=== PATIENT | male | born 2000 | race African-American/Black ===

== ENCOUNTER 2019-03-26 02:27 | Emergency (ER) | payer SELFPAY, OTHER | END 2019-03-26 03:40 | disposition home or self-care (01) | LOC: ER 02:27 ==

== ENCOUNTER 2019-11-09 07:01 | Emergency (ER) | payer BC, OTHER ==
[~2019-11-09] VITALS: Ht 177 cm; Wt 79.0 kg
--- NOTE | 2019-11-09 07:31 | ED Lower Extremity ---
General Chief Complaint: Lower Extremity Stated Complaint: LEFT ANKLE PAIN Nursing Triage Note: ARRIVED VIA WC TO ROOM 06 WITH COMPLAINTS OF LEFT ANKLE PAIN AFTER PLAYING BASKET BALL YESTERDAY. Nursing Sepsis Screen: No Definite Risk Source: patient Exam Limitations: no limitations History of Present Illness Date Seen by Provider: Nov 09, 2019 Time Seen by Provider: 07:06 Initial Comments This 19-year-old young man presents to the emergency room with injury to the left ankle. He rolled his ankle while playing basketball on his home last nig ht. He has swelling throughout the ankle and tenderness over both malleoli. He has not been able to bear weight due to pain. He has been icing the ankle but has not taken any medications. He has no other injuries. Allergies and Home Medications Allergies Coded Allergies: No Known Drug Allergies (Unverified , 03/26/19) Home Medications No Active Prescriptions or Reported Meds Patient Home Medication List Home Medication List Reviewed: Yes Review of Systems Constitutional: no symptoms reported EENTM: no symptoms reported Musculoskeletal: see HPI Skin: no symptoms reported Psychiatric/Neurological: No Symptoms Reported Past Xcadvlq-Effvgo-Uoijku Hx Past Med/Social Hx: Reviewed and Corrections made Patient Social History Alcohol Use: Rarely Uses Recreational Drug Use: Yes Drug of Choice: POT Smoking Status: Former Smoker Type Used: Cigars 2nd Hand Smoke Exposure: Yes Recent Foreign Travel: No Contact w/Someone Who Travel: No Recent Infectious Disease Expo: No Recent Hopitalizations: No Past Medical History Surgeries: Yes (TUBES IN EARS) Ear Surgery Respiratory: Yes Asthma Cardiac: No Neurological: No Genitourinary: No Gastrointestinal: No Musculoskeletal: No Endocrine: No HEENT: No Cancer: No Did You Recieve Any Treatments: No Psychosocial: No Family Medical History Reviewed Nursing Family Hx No Pertinent Family Hx Physical Exam Vital Signs Vital Signs - First Documented 11/09/19 07:05 Temp 37.0 Pulse 81 Resp 16 B/P (MAP) 130/82 (98) Pulse Ox 98 O2 Delivery Room Air Capillary Refill : Less Than 3 Seconds Height, Weight, BMI Height: 5'10.00" Weight: 170lbs. oz. [id number]; 55.00 BMI Method:Stated General Appearance: WD/WN, no apparent distress HEENT: normal ENT inspection Respiratory: no respiratory distress Legs: left leg non-tender, left leg normal inspection, left leg normal range of motion, left leg no evidence of injury Knees: left knee non-tender, left knee normal inspection, left knee normal ran ge of motion, left knee no evidence of injury Ankles: left ankle bone tenderness (bilateral malleoli), left ankle ecchymosis, left ankle limited range of motion, left ankle pain, left ankle swelling Feet: left foot non-tender, left foot normal inspection, left foot normal range of motion, left foot no evidence of injury 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 Patient was wrapped with an Adam bandage followed by a step light boot. Crutches were dispensed. Patient was encouraged to follow-up with primary care provider or an orthopedic provider for further care. Diagnostic Imaging Diagonstic Imaging: Xray Plain Films/CT/US/NM/MRI: ankle Comments Ankle x-ray viewed by me and report reviewed. There is a suspected small avulsion fracture on the lateral malleolus. See report below: NAME: CLAUDIA VILLAFANA [facility] REC#: [id number] PT STATUS: REG ER : 2000 PHYSICIAN: BUTCH FALK MD ADMIT DATE: 11/09/19/ER Draft Date of Exam:11/09/19 ANKLE, LEFT, 3 VIEWS Reason for examination: Swelling and bruising. 3 views of the left ankle demonstrate lateral soft tissue swelling. No widening of ankle mortise. Question of a small avulsion fragment from the lateral malleolus on the AP view. No osteochondral defects. IMPRESSION: 1. Left ankle lateral soft tissue swelling and a possible small avulsion fragment from the lateral malleolus on the AP view only (see arrow annotation). Dictated on workstation # [id number] Dict: 11/09/19 0759 Trans: 11/09/[address] [place] [address] [id number] Interpreted by: SANTOS GARCIA MD Departure Impression Primary Impression: Avulsion fracture of left ankle Qualified Codes: S82.892A - Other fracture of left lower leg, initial encounter for closed fracture Additional Impression: Left ankle sprain Qualified Codes: S93.402A - Sprain of unspecified ligament of left ankle, initial encounter Disposition: 01 HOME, SELF-CARE Condition: Improved Departure-Patient Inst. Decision time for Depature: 07:51 Referrals: [facility] (PCP) Primary Care Physician ULBA SEAY MD, MICHAEL P MD Patient Instructions: Ankle Sprain, Avulsion Fracture, How to Use Crutches Add. Discharge Instructions: Use crutches as needed for ambulation. Wear your boot when active. You may partially weight-bear on the boot but do not walk without the crutches until follow-up. Rest, compressive wrapping, elevation, and 20 minute intervals of icing should help with pain and swelling. For pain you may take Tylenol (acetaminophen) up to 1000 mg every 6 hours as needed. You may add ibuprofen up to 600 mg every 6 hours as needed for additional pain relief if needed. Follow-up with your primary care provider and/or an orthopedic provider within the next week. Some local orthopedic providers have been listed below for your convenience. Return to care if you have any worsening of symptoms or are not improving as anticipated. All discharge instructions reviewed with patient and/or family. Voiced understanding. Scripts No Active Prescriptions or Reported Meds BUTCH FALK MD Nov 09, 2019 07:31
--- NOTE | 2019-11-09 08:07 | Diagnostic Imaging Report ---
Reason for examination: Swelling and bruising. 3 views of the left ankle demonstrate lateral soft tissue swelling. No widening of ankle mortise. Question of a small avulsion fragment from the lateral malleolus on the AP view. No osteochondral defects. IMPRESSION: 1. Left ankle lateral soft tissue swelling and a possible small avulsion fragment from the lateral malleolus on the AP view only (see arrow annotation). Dictated by: Dictated on workstation # [id number]
--- NOTE | 2019-11-09 08:16 | NUR ---
IN TALKING TO PT AT THIS TIME.
[2019-11-09 08:23] VITALS: BP 130/82
== END 2019-11-09 08:23 | disposition home or self-care (01) ==
LOC: EDUNIT# 07:01 → ER 07:02
DX: S82.892A Other fracture of left lower leg, initial encounter for closed fracture (principal); Z87.891 Personal history of nicotine dependence; Z77.22 Contact with and (suspected) exposure to environmental tobacco smoke (acute) (chronic); X50.1XXA Overexertion from prolonged static or awkward postures, initial encounter; Y93.67 Activity, basketball; Y92.009 Unspecified place in unspecified non-institutional (private) residence as the place of occurrence of the external cause
CPT/HCPCS: 73610

== ENCOUNTER 2019-12-05 23:14 | Emergency (ER) | payer BC ==
[~2019-12-05] VITALS: Ht 175 cm; Wt 81.0 kg
[2019-12-05 23:18] VITALS: BP 145/52
[2019-12-05] MEDS ORDERED: methylPREDNISolone 125 MG (Solu-MEDROL) VIAL IV STA (23:22)
[2019-12-05] MEDS ORDERED: RT-ALBUTEROL/IPRATROPIUM 3 ML (DUONEB) VIAL INH ONE (23:30)
[2019-12-05 23:34] LABS: BASOPHILS # (AUTO) 0.1 10^3/uL (0.0-0.1); BASOPHILS % (AUTO) 1 % (0-10); EOSINOPHILS # (AUTO) 0.7 10^3/uL (0.0-0.3); EOSINOPHILS % (AUTO) 6 % (0-10); HEMATOCRIT 43 % (40-54); HEMOGLOBIN 14.7 G/DL (13.3-17.7); LYMPHOCYTES # (AUTO) 4.3 X 10^3 (1.0-4.0); LYMPHOCYTES % (AUTO) 40 % (12-44); MEAN CORPUSCULAR HEMOGLOBIN 29 PG (25-34); MEAN CORPUSCULAR HGB CONC 34 G/DL (32-36); MEAN CORPUSCULAR VOLUME 86 FL (80-99); MEAN PLATELET VOLUME 10.1 FL (7.4-10.4); MONOCYTES # (AUTO) 0.9 X 10^3 (0.0-1.0); MONOCYTES % (AUTO) 8 % (0-12); NEUTROPHILS % (AUTO) 46 % (42-75); PLATELET COUNT 242 10^3/uL (130-400); RED CELL DISTRIBUTION WIDTH 12.4 % (10.0-14.5); WHITE BLOOD COUNT 10.9 10^3/uL (4.3-11.0)
--- NOTE | 2019-12-05 23:35 | ED Respiratory ---
General Chief Complaint: Respiratory Problems Stated Complaint: ASTHMA,SOB Nursing Triage Note: PT AMBULATES TO RM 5 WITH C/O SOB FOR 1-2 HRS, STATES HE HAS HX OF ASTHMA AND LOST HIS INHALER. Source: patient History of Present Illness Date Seen by Provider: December 05, 2019 Time Seen by Provider: 23:15 Initial Comments PT ARRIVES VIA POV FROM HOME C/O ASTHMA ATTACK--BEGAN 1-2 HOURS AGO STATES HE LOST HIS INHALER A WEEK AGO--DOES NOT USE IT ON ANY REGULAR BASIS-- ALBUTEROL INHALER WAS SENT HOME WITH HIM FROM ER VISIT 03/26/19 STATES HE WAS RUNNING WHEN SYMPTOMS BEGAN --ALSO STATES LATER, HE HAD JUST SMOKED MARIJUANA JUST PRIOR TO ONSET OF SYMPTOMS NO CHEST PAIN--FEELS TIGHT NO FEVER NO SIGNIFICANT COUGH NO KNOWN SICK CONTACTS OR EXPOSURE TO COVID-19 LIVES WITH GIRLFRIEND, AND SHE HAS NOT BEEN ILL PT HAS CONTINUED TO WORK DURING STAY AT HOME ORDERS FROM [facility]--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 Allergies and Home Medications Allergies Coded Allergies: No Known Drug Allergies (Unverified , 03/26/19) Home Medications No Active Prescriptions or Reported Meds Patient Home Medication List Home Medication List Reviewed: Yes Review of Systems Review of Systems Constitutional: no symptoms reported; No chills, No diaphoresis, No dizziness, No fever EENTM: no symptoms reported; No nose congestion, No throat pain, No throat swelling Respiratory: see HPI, short of breath, wheezing Cardiovascular: see HPI; No palpitations, No syncope Gastrointestinal: no symptoms reported Genitourinary: no symptoms reported Musculoskeletal: no symptoms reported Skin: no symptoms reported Psychiatric/Neurological: No Symptoms Reported Hematologic/Lymphatic: No Symptoms Reported Immunological/Allergic: no symptoms reported Past Ovqqjyk-Oqerpt-Rghbaf Hx Past Med/Social Hx: Reviewed and Corrections made Patient Social History Alcohol Use: Rarely Uses Recreational Drug Use: Yes (MARIJUANA ) Drug of Choice: THC Smoking Status: Current Everyday Smoker Type Used: Cigars 2nd Hand Smoke Exposure: Yes Recent Foreign Travel: No Contact w/Someone Who Travel: No Recent Infectious Disease Expo: No Recent Hopitalizations: No Past Medical History Surgeries: Yes (TUBES IN EARS CHILD) Ear Surgery Respiratory: Yes Asthma Cardiac: No Neurological: No Genitourinary: No Gastrointestinal: No Musculoskeletal: No Endocrine: No HEENT: No Cancer: No Did You Recieve Any Treatments: No Psychosocial: No Integumentary: No Blood Disorders: No Family Medical History No Pertinent Family Hx Physical Exam Vital Signs - First Documented 12/05/19 23:18 Temp 36.6 Pulse 85 Resp 20 B/P (MAP) 145/52 (83) Pulse Ox 97 O2 Delivery Room Air Capillary Refill : Less Than 3 Seconds Height: 5'10.00" Weight: 170lbs. oz. 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, no motor/sensory deficits, alert, normal mood/affect, oriented x 3 Skin: normal color (PT IS BLACK), warm/dry, tattoos/piercings (EXTENSIVE TATTOOS, BOTH EARS PIERCED) Progress/Results/Core Measures Suspected Sepsis Recent Fever Within 48 Hours: No Infection Criteria Present: None New/Unexplained Altered Menta: No Sepsis Screen: No Definite Risk SIRS Temperature: Pulse: 85 Respiratory Rate: 20 Laboratory Tests 12/05/19 23:21: White Blood Count 10.9 Blood Pressure 145 /52 Mean: 83 Laboratory Tests 12/05/19 23:21: Creatinine 1.10, Platelet Count 242, Total Bilirubin 0.8 Results/Orders Lab Results Laboratory Tests Test 12/05/19 23:21 12/05/19 23:39 Range/Units White Blood Count 10.9 4.3-11.0 10^3/uL Red Blood Count 5.01 4.35-5.85 10^6/uL Hemoglobin 14.7 13.3-17.7 G/DL Hematocrit 43 40-54 % Mean Corpuscular Volume 86 80-99 FL Mean Corpuscular Hemoglobin 29 25-34 PG Mean Corpuscular Hemoglobin Concent 34 32-36 G/DL Red Cell Distribution Width 12.4 10.0-14.5 % Platelet Count 242 130-400 10^3/uL Mean Platelet Volume 10.1 7.4-10.4 FL Neutrophils (%) (Auto) 46 42-75 % Lymphocytes (%) (Auto) 40 12-44 % Monocytes (%) (Auto) 8 0-12 % Eosinophils (%) (Auto) 6 0-10 % Basophils (%) (Auto) 1 0-10 % Neutrophils # (Auto) 5.0 1.8-7.8 X 10^3 Lymphocytes # (Auto) 4.3 H 1.0-4.0 X 10^3 Monocytes # (Auto) 0.9 0.0-1.0 X 10^3 Eosinophils # (Auto) 0.7 H 0.0-0.3 10^3/uL Basophils # (Auto) 0.1 0.0-0.1 10^3/uL Sodium Level 140 135-145 MMOL/L Potassium Level 4.0 3.6-5.0 MMOL/L Chloride Level 102 98-107 MMOL/L Carbon Dioxide Level 25 21-32 MMOL/L Anion Gap 13 5-14 MMOL/L Blood Urea Nitrogen 17 7-18 MG/DL Creatinine 1.10 0.60-1.30 MG/DL Estimat Glomerular Filtration Rate > 60 BUN/Creatinine Ratio 15 Glucose Level 108 H 70-105 MG/DL Calcium Level 8.8 8.5-10.1 MG/DL Corrected Calcium 8.5 8.5-10.1 MG/DL Magnesium Level 2.0 1.6-2.4 MG/DL Total Bilirubin 0.8 0.1-1.0 MG/DL Aspartate Amino Transf (AST/SGOT) 22 5-34 U/L Alanine Aminotransferase (ALT/SGPT) 44 0-55 U/L Alkaline Phosphatase 61 40-136 U/L Total Protein 7.2 6.4-8.2 GM/DL Albumin 4.4 3.2-4.5 GM/DL Serum Alcohol < 10 <10 MG/DL Urine Opiates Screen NEGATIVE NEGATIVE Urine Oxycodone Screen NEGATIVE NEGATIVE Urine Methadone Screen NEGATIVE NEGATIVE Urine Propoxyphene Screen NEGATIVE NEGATIVE Urine Barbiturates Screen NEGATIVE NEGATIVE Ur Tricyclic Antidepressants Screen NEGATIVE NEGATIVE Urine Phencyclidine Screen NEGATIVE NEGATIVE Urine Amphetamines Screen NEGATIVE NEGATIVE Urine Methamphetamines Screen NEGATIVE NEGATIVE Urine Benzodiazepines Screen NEGATIVE NEGATIVE Urine Cocaine Screen NEGATIVE NEGATIVE Urine Cannabinoids Screen POSITIVE H NEGATIVE My Orders Orders - TASHA RODRÍGUEZA Deepak DO Ed Iv/Invasive Line Start (12/05/19 23:22) Monitor-Rhythm Ecg Trace Only (12/05/19 23:22) Chest Pa/Lat (2 View) (12/05/19 23:22) Alcohol (12/05/19 23:22) Cbc With Automated Diff (12/05/19 23:22) Comprehensive Metabolic Panel (12/05/19 23:22) Drug Screen Stat (Urine) (12/05/19 23:22) Magnesium (12/05/19 23:22) Albuterol/Ipra Inhalation Soln (Duoneb I (12/05/19 23:30) Rt Request For Service (12/05/19 23:22) Methylprednisolone Sod Succ (Solu-Medrol (12/05/19 23:22) Svn Small Volume Nebulizer (12/05/19 23:22) Medications Given in ED Current Medications Medications Dose Ordered Sig/Rosalino Route Start Time Stop Time Status Last Admin Dose Admin Albuterol/ Ipratropium 3 ml ONCE ONCE INH 12/05/19 23:30 12/05/19 23:31 DC 12/05/19 23:30 3 ML Vital Signs/I&O 12/05/19 12/05/19 23:18 23:31 Temp 36.6 Pulse 85 Resp 20 B/P (MAP) 145/52 (83) Pulse Ox 97 98 O2 Delivery Room Air Room Air Capillary Refill : Less Than 3 Seconds Blood Pressure Mean: 83 Progress Note : Progress Note SYMPTOMS RESOLVED AND LUNGS CLEAR AFTER DUO NEB TREATMENT Diagnostic Imaging Comments CXR--NO ACUTE PROCESS, PENDING RADIOLOGIST REVIEW Reviewed: Reviewed by Me Departure Impression Primary Impression: Asthma attack Additional Impressions: Marijuana use Cigarette smoker Disposition: HOME, SELF-CARE Condition: Improved Departure-Patient Inst. Referrals: [facility] (PCP) Primary Care Physician [facility] Patient Instructions: Asthma, Adult (DC), Drug Abuse and Drug Addiction (DC), Marijuana Use and Addiction (DC), Quitting Smoking for Teens and Young Adults, Smoking: Not Just Harmful to Your Lungs and Heart Add. Discharge Instructions: HOME, REST NO MARIJUANA AND NO TOBACCO SMOKE AND NO SMOKING OR VAPING OF ANY KIND!!!! FOLLOW UP WITH [facility] FOR FURTHER CARE RETURN TO ER IF WORSE All discharge instructions reviewed with patient and/or family. Voiced understanding. Scripts Albuterol Sulfate (PROAIR HFA) 1 Puff Puff 2 PUFF IH Q4H, #1 EA 1 PUFF = 90 MCG Prov: MARCIAL RODRÍGUEZ DO 12/06/19 MARCIAL RODRÍGUEZ DO December 05, 2019 23:35
[2019-12-05 23:39] LABS: ALBUMIN 4.4 GM/DL (3.2-4.5); CHLORIDE 102 MMOL/L (98-107); SODIUM 140 MMOL/L (135-145)
[2019-12-05 23:40] LABS: CALCIUM 8.8 MG/DL (8.5-10.1)
[2019-12-05 23:41] LABS: GLUCOSE 108 MG/DL (70-105)
[2019-12-05 23:42] LABS: TOTAL PROTEIN 7.2 GM/DL (6.4-8.2)
[2019-12-05 23:43] LABS: BILIRUBIN,TOTAL 0.8 MG/DL (0.1-1.0); CARBON DIOXIDE 25 MMOL/L (21-32)
[2019-12-05 23:45] LABS: ALKALINE PHOSPHATASE 61 U/L (40-136); GFR ESTIMATED > 60
[2019-12-05 23:46] LABS: BUN/CREATININE RATIO 15
[2019-12-05 23:48] LABS: ALANINE AMINOTRANSFERASE 44 U/L (0-55)
[2019-12-05 23:59] LABS: AMPHETAMINE SCREEN, URINE NEGATIVE (NEGATIVE); BENZODIAZEPINES SCREEN URINE NEGATIVE (NEGATIVE); CANNABINOID SCREEN, URINE POSITIVE (NEGATIVE); COCAINE SCREEN URINE NEGATIVE (NEGATIVE); METHAMPHETAMINE SCREEN URINE S NEGATIVE (NEGATIVE)
[2019-12-06] LABS: BARBITURATE SCREEN URINE NEGATIVE (NEGATIVE); METHADONE STAT NEGATIVE (NEGATIVE); OPIATE SCREEN URINE NEGATIVE (NEGATIVE); OXYCODONE STAT NEGATIVE (NEGATIVE); PROPOXYPHENE STAT NEGATIVE (NEGATIVE); TRICYCLIC ANTIDEPRESSANTS SCRE NEGATIVE (NEGATIVE)
[2019-12-06] MEDS ORDERED: RT-ALBUINH IH (00:06)
--- NOTE | 2019-12-06 06:44 | Diagnostic Imaging Report ---
INDICATION: Asthma attack. Shortness of air COMPARISON: None FINDINGS: Frontal and lateral views of the chest demonstrate normal heart size and pulmonary vascularity. The lungs are clear. There are no signs of infiltrate, pleural effusions or pneumothoraces. The visualized osseous structures show no acute abnormalities. IMPRESSION: 1. No acute process. No signs of infiltrates, effusions or pneumothoraces. Dictated by: Dictated on workstation # [id number]
== END 2019-12-06 00:13 | disposition home or self-care (01) ==
LOC: EDUNIT# 23:14 → ER 23:15
DX: J45.901 Unspecified asthma with (acute) exacerbation (principal); F17.210 Nicotine dependence, cigarettes, uncomplicated; F12.90 Cannabis use, unspecified, uncomplicated; F17.290 Nicotine dependence, other tobacco product, uncomplicated
CPT/HCPCS: 36415; 71046; 80053; 80306; 80320; 83735; 85025; 94640